=== PATIENT | female | born 1975 | race Caucasian/White ===

== ENCOUNTER 2020-05-20 14:10 | Outpatient (CLI) | payer BC, SELFPAY ==
[2020-05-20 15:23] LABS: Beta HCG Quantitative < 2.39 mIU/ML
== END 2020-05-20 14:11 | disposition home or self-care (01) ==
PROVIDERS: Visit Provider Radiology Radiation Oncology
DX: C50.812 Malignant neoplasm of overlapping sites of left female breast (principal)
CPT/HCPCS: 36415; 84702